=== PATIENT | male | born 1985 | race Caucasian/White ===

== ENCOUNTER 2017-11-10 13:33 | Emergency (ER) | payer MEDICAID ==
[~2017-11-10] VITALS: Ht 177.8 cm; Wt 93.4 kg
[2017-11-10 13:35] VITALS: BP 120/68; Ht 177.8 cm; Wt 93.4 kg
== END 2017-11-10 14:53 | disposition home or self-care (01) ==
LOC: ED 13:33
DX: S39.012A Strain of muscle, fascia and tendon of lower back, initial encounter (principal); M51.37 Other intervertebral disc degeneration, lumbosacral region; X58.XXXA Exposure to other specified factors, initial encounter; Y93.89 Activity, other specified; Y92.89 Other specified places as the place of occurrence of the external cause; Y99.8 Other external cause status
CPT/HCPCS: J1885